=== PATIENT | male | born 2000 | race Caucasian/White ===

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

== ENCOUNTER 2024-01-05 17:03 | Emergency (ER) | payer OTHER ==
[~2024-01-05] VITALS: Ht 175.3 cm; Wt 72.7 kg
[2024-01-05] MEDS ORDERED: IBUP-1492 PO (17:18)
[2024-01-05 21:57] VITALS: BP 126/73; PULSE 95; RESP 18; TEMP 99.1
[2024-01-05] MEDS: SULFAMETHOX/TRIMETH DS 800-160 MG/TABLET PO ONE (22:40)
[2024-01-05] MEDS: CEPHALEXIN MONOHYDRATE 500 MG CAPSULE PO ONE (22:41)
[2024-01-05] MEDS: ACETAMINOPHEN 500 MG TABLET PO ONE (22:41)
[2024-01-05] MEDS ORDERED: ACET-3385 PO (22:42)
[2024-01-05] MEDS ORDERED: CEPH-558 PO (22:42)
[2024-01-05] MEDS ORDERED: SULF-261 PO (22:42)
== END 2024-01-05 23:00 | disposition home or self-care (01) ==
LOC: EMS 17:15
DX: L03.115 Cellulitis of right lower limb (principal); G43.909 Migraine, unspecified, not intractable, without status migrainosus
CPT/HCPCS: 99284; 73590-TC; Z7502; Z7610

== ENCOUNTER 2025-03-15 10:37 | Emergency (ER) | payer OTHER ==
[~2025-03-15] VITALS: Ht 175.3 cm; Wt 68.2 kg
[~2025-03-15 10:37] MED LIST: ACET-3385 PO; CEPH-558 PO; IBUP-1492 PO; SULF-261 PO
[2025-03-15 10:41] VITALS: TEMP 98.9
[2025-03-15] MEDS ORDERED: IOHEXOL 350 MG/ML 100 ML VIAL ONE (11:09)
[2025-03-15] MEDS ORDERED: SODIUM CHLORIDE 0.9% 100 ML ONE (11:09)
[2025-03-15] MEDS: ONDANSETRON HCL 4 MG/2 ML VIAL IVP ONE (11:13)
[2025-03-15] MEDS: SODIUM CHLORIDE 0.9% 1,000 ML IV ONE (11:14)
[2025-03-15] MEDS: MAG HYDROX/ALUMINUM HYD/SIMETH 30 ML SUSPENSION UDCUP PO ONE (11:14)
[2025-03-15] MEDS: FAMOTIDINE 20 MG/2 ML VIAL IVP ONE (11:14)
[2025-03-15] MEDS: KETOROLAC TROMETHAMINE 30 MG/ML VIAL IVP ONE (11:14)
[2025-03-15 11:15] LABS: BASOPHILS % (AUTO) 0.4 % (0.0-2.0); EOSINOPHILS % (AUTO) 1.4 % (1.0-6.0); HEMATOCRIT 45.2 % (41-53); HEMOGLOBIN 15.5 g/dL (13.5-17.5); LYMPHOCYTES % (AUTO) 14.9 % (22.0-44.0); MEAN CORPUSCULAR HGB CONC 34.4 G/dL (31.0-37.0); MEAN CORPUSCULAR VOLUME 90 fL (80-100); MONOCYTES % (AUTO) 7.4 % (2.0-9.0); NEUTROPHILS # (AUTO) 10.3 K/uL (1.8-7.7); NEUTROPHILS % (AUTO) 75.9 % (40.0-70.0); PLATELET COUNT (AUTO) 331 K/uL (150-450); RED BLOOD CELL COUNT(AUTO) 5.02 MIL/uL (4.50-5.90); RED CELL DISTRIBUTION WIDTH 13.5 % (11.5-14.5); WHITE BLOOD COUNT (AUTO) 13.6 K/uL (4.5-11.0)
[2025-03-15 11:27] LABS: ANION GAP 9 mmol/L (8-16); CALCIUM, TOTAL 9.5 mg/dL (8.8-10.5); CARBON DIOXIDE 32 mmol/L (22-29); CHLORIDE 102 mmol/L (98-107); CREATININE 0.83 mg/dL (0.60-1.30); GLOMERULAR FILTR. RATE CALC > 60 mL/min (>60); GLUCOSE,RANDOM 82 mg/dL (70-110); POTASSIUM 3.9 mmol/L (3.5-5.1); SODIUM SERUM 143 mmol/L (136-145); UREA NITROGEN, BLOOD 11 mg/dL (7-18)
[2025-03-15 11:31] LABS: ALBUMIN 4.5 g/dL (3.4-5.0); BILIRUBIN,DIRECT 0.3 mg/dL (0.00-0.20); BILIRUBIN,TOTAL 1.5 mg/dL (0.1-1.0)
[2025-03-15] MEDS ORDERED: ONDA-104 PO (12:51)
[2025-03-15 13:45] VITALS: BP 108/64; PULSE 62; RESP 15; O2SAT 99
== END 2025-03-15 14:15 | disposition home or self-care (01) ==
LOC: EMS 10:58
DX: R11.2 Nausea with vomiting, unspecified (principal); R10.9 Unspecified abdominal pain; F12.90 Cannabis use, unspecified, uncomplicated; G43.909 Migraine, unspecified, not intractable, without status migrainosus
CPT/HCPCS: 99285; 74177; 96374; 96361; 96375; 80048; 80076; 83690; 85025; 36415; J1885; Q9967; J3490; J2405; J7030; J7050